=== PATIENT | male | born 1960 | race Caucasian/White ===

== ENCOUNTER 2023-08-01 21:44 | Emergency (ER) | payer OTHER ==
[2023-08-01] MEDS ORDERED: Sodium Chloride 0.9% 1000 ML 1,000 ML IV STA (22:40)
[2023-08-01 22:41] VITALS: TEMP 98.2
[2023-08-01] MEDS ORDERED: ROCEPHIN 1 Gm-D5w 50 ml Bag** 1 G/50 ML IVPB IV STA (22:41)
--- NOTE | 2023-08-01 22:52 | ERPHSYRPT ---
- History of Present Illness Time Seen by Provider: 08/01/23 22:31 Source: patient, family (sister) Exam Limitations: no limitations Physician History: Reportedly pt had abnormal labs today and was instructed to come to ER by his senior sharepoint architect. Pt denies chest pain, shortness of air, fever, vomiting, diarrhea; admits to chills for months. Pt states he has been diagnosed with bladder cancer in August 2022 and follows up with Dr. Mccoy with monthly infusions of o pdivo. Allergies/Adverse Reactions: No Known Drug Allergies Allergy (Unverified 08/01/23 22:26) Home Medications: Docusate Sodium 100 mg [Docusate Sodium 100 MG] 100 mg PO DAILY 08/01/23 [History] Prochlorperazine Maleate 5 mg* [Compazine 5 MG] 5 mg PO DAILY PRN PRN 08/01/23 [History] - Review of Systems Constitutional: Chills, No Fever Respiratory: No Dyspnea Cardiac: No Chest Pain Abdominal/Gastrointestinal: No Abdominal Pain, No Vomiting, No Diarrhea Neurological: No Headache - Nursing Vital Signs Nursing Vital Signs: Initial Vital Signs Temperature 98.2 F 08/01/23 22:28 Pulse Rate 112 H 08/01/23 22:28 Respiratory Rate 18 08/01/23 22:28 Blood Pressure 110/69 08/01/23 22:28 O2 Sat by Pulse Oximetry 98 08/01/23 22:28 Pain Scale Pain Intensity 0 - Physical Exam General Appearance: alert Eye Exam: PERRL/EOMI Ears, Nose, Throat Exam: TMs normal, pharynx normal Neck Exam: normal inspection Respiratory Exam: lungs clear Cardiovascular Exam: normal heart sounds Gastrointestinal/Abdomen Exam: normal bowel sounds Neurologic Exam: alert, cooperative Skin Exam: warm, dry Ordered Tests: Active Orders 24 hr Category Date Time Status IV Insertion STAT Care 08/01/23 22:40 Active BLOOD CULTURE Stat Lab 08/01/23 23:14 Received CBC W DIFF Stat Lab 08/01/23 23:20 Completed CMP Stat Lab 08/01/23 23:20 Completed CULTURE,URINE Stat Lab 08/02/23 00:15 Received Lactic Acid Stat Lab 08/01/23 23:31 Completed UA W/RFX UR CULTURE Stat Lab 08/02/23 00:15 Completed VBG [VENOUS BLOOD GAS] Stat Lab 08/01/23 23:20 Completed Medication Summary Generic Name Dose Route Start Last Admin Trade Name Talya PRN Reason Stop Dose Admin Sodium Bicarbonate 100 meq/ 1,100 mls @ 999 mls/hr 08/02/23 00:30 08/02/23 01:32 Dextrose IV 09/01/23 00:29 999 mls/hr .Q1H7M SELINA 999 mls/hr Administration Discontinued Medications Generic Name Dose Route Start Last Admin Trade Name Talya PRN Reason Stop Dose Admin Sodium Chloride 1,000 mls @ 999 mls/hr 08/01/23 22:40 08/02/23 00:22 Sodium Chloride 0.9% 1000 Ml IV 08/01/23 23:40 Infused .Q1H1M STA Infusion Ceftriaxone Sodium/Dextrose 1 g in 50 mls @ 100 mls/hr 08/01/23 22:41 08/02/23 00:19 Rocephin 1 Gm-D5w 50 Ml Bag IV 08/01/23 23:10 Infused STAT STA Infusion Sodium Chloride Confirm 08/01/23 23:17 Sodium Chloride 0.9% 1000 Ml Administered 08/01/23 23:18 Dose 1,000 mls @ ud .ROUTE .STK-MED ONE Ceftriaxone Sodium/Dextrose Confirm 08/01/23 23:17 Rocephin 1 Gm-D5w 50 Ml Bag Administered 08/01/23 23:18 Dose 1 g in 50 mls @ ud IV .STK-MED ONE Dextrose Confirm 08/02/23 00:28 Dextrose 5%/Water Iv Soln. 1000 Ml Administered 08/02/23 00:29 Dose 1,000 mls @ ud IV .STK-MED ONE Sodium Bicarbonate Confirm 08/02/23 00:27 Sodium Bicarbonate 1 Meq/Ml 50ml Vial Administered 08/02/23 00:28 Dose 100 meq .ROUTE .STK-MED ONE Sodium Bicarbonate Confirm 08/02/23 01:08 Sodium Bicarbonate 1 Meq/Ml 50ml Vial Administered 08/02/23 01:09 Dose 50 meq .ROUTE .STK-MED ONE Lab/Rad Data: Laboratory Result Diagrams 08/01/23 23:20 08/01/23 23:20 Laboratory Results 08/02/23 08/01/23 08/01/23 Range/Units 00:15 23:31 23:20 WBC (4.0-10.5) x10^3/uL RBC (4.1-5.6) x10^6/uL Hgb (12.5-18.0) g/dL Hct (42-50) % MCV (78-100) fL MCH (26-32) pg MCHC (32-36) g/dL RDW (11.5-14.0) % Plt Count (150-450) x10^3/uL MPV (7.5-11.0) fL Gran % (36.0-66.0) % Immature Gran % (Auto) (0.00-0.4) % Nucleat RBC Rel Count (0.00-0.1) % Eos # (Auto) (0-0.5) x10^3/uL Immature Gran # (Auto) (0.00-0.03) x10^3u/L Absolute Lymphs (auto) (1.0-4.6) x10^3/uL Absolute Monos (auto) (0.0-1.3) x10^3/uL Absolute Nucleated RBC (0.00-0.01) x10^3u/L Lymphocytes % (24.0-44.0) % Monocytes % (0.0-12.0) % Eosinophils % (0.00-5.0) % Basophils % (0.0-0.4) % Absolute Granulocytes (1.4-6.9) x10^3/uL Basophils # (0-0.4) x10^3/uL pO2/FiO2 Ratio % VBG pH (7.32-7.42) VBG pCO2 at Pat Temp (42-55) mm/Hg VBG pO2 at Pat Temp (25-40) mm/Hg VBG HCO3 (22-28) meq/L VBG O2 Sat ([place]) (95-100) VBG Base Excess (-2.0-2.0) VBG Hemoglobin VBG Carboxyhemoglobin (0.0-6.9) % T HGB POC Potassium (3.5-5.1) Sodium 132 L (137-145) mmol/L Potassium 4.6 (3.5-5.1) mmol/L Chloride 110 H (98-107) mmol/L Carbon Dioxide 8 L* (22-30) mmol/L Anion Gap 18.3 H (5-15) MEQ/L BUN 92 H (9-20) mg/dL Creatinine 4.26 H (0.66-1.25) mg/dL Estimated GFR 15.0 ML/MIN Glucose 110 H (74-106) mg/dL Lactic Acid 0.6 (0.4-2.0) Calcium 9.5 (8.4-10.2) mg/dL Total Bilirubin 0.20 (0.2-1.3) mg/dL AST 18 (17-59) U/L ALT 21 (0-50) U/L Alkaline Phosphatase 160 H (38-126) U/L Serum Total Protein 8.4 H (6.3-8.2) g/dL Albumin 4.2 (3.5-5.0) g/dL Urine Color Yellow (Yellow) Urine Appearance Clear (Clear) Urine pH 6.5 (4.6-8.0) Ur Specific [place] 1.010 (1.005-1.030) Urine Protein 100 A (Negative) Urine Glucose (UA) Negative (Negative) mg/dL Urine Ketones Negative (Negative) Urine Blood Small A (Negative) Urine Nitrite Positive A (Negative) Urine Bilirubin Negative (Negative) Urine Urobilinogen 0.2 (0.2) mg/dL Ur Leukocyte Esterase Large A (Negative) U Hyaline Cast (Auto) NONE SEEN (0-2) /LPF Urine Microscopic RBC 3-5 (0-5) /HPF Urine Microscopic WBC >100 A (0-5) /HPF Ur Epithelial Cells Rare (None Seen) /HPF Urine Bacteria Many A (None Seen) /HPF Urine Culture Reflexed YES (NO) 08/01/23 08/01/23 Range/Units 23:20 23:20 WBC 10.7 H (4.0-10.5) x10^3/uL RBC 3.97 L (4.1-5.6) x10^6/uL Hgb 10.7 L (12.5-18.0) g/dL Hct 33.3 L (42-50) % MCV 83.9 (78-100) fL MCH 27.0 (26-32) pg MCHC 32.1 (32-36) g/dL RDW 17.0 H (11.5-14.0) % Plt Count 311 (150-450) x10^3/uL MPV 9.5 (7.5-11.0) fL Gran % 82.2 H (36.0-66.0) % Immature Gran % (Auto) 1.8 H (0.00-0.4) % Nucleat RBC Rel Count 0.0 (0.00-0.1) % Eos # (Auto) 0.09 (0-0.5) x10^3/uL Immature Gran # (Auto) 0.19 H (0.00-0.03) x10^3u/L Absolute Lymphs (auto) 0.87 L (1.0-4.6) x10^3/uL Absolute Monos (auto) 0.73 (0.0-1.3) x10^3/uL Absolute Nucleated RBC 0.00 (0.00-0.01) x10^3u/L Lymphocytes % 8.1 L (24.0-44.0) % Monocytes % 6.8 (0.0-12.0) % Eosinophils % 0.8 (0.00-5.0) % Basophils % 0.3 (0.0-0.4) % Absolute Granulocytes 8.82 H (1.4-6.9) x10^3/uL Basophils # 0.03 (0-0.4) x10^3/uL pO2/FiO2 Ratio 21.0 % VBG pH 7.17 L* (7.32-7.42) VBG pCO2 at Pat Temp 32 L (42-55) mm/Hg VBG pO2 at Pat Temp 59 H (25-40) mm/Hg VBG HCO3 11.7 L* (22-28) meq/L VBG O2 Sat ([place]) 91.0 L (95-100) VBG Base Excess -15.6 L (-2.0-2.0) VBG Hemoglobin 11.1 VBG Carboxyhemoglobin 7.5 H* (0.0-6.9) % T HGB POC Potassium 4.6 (3.5-5.1) Sodium (137-145) mmol/L Potassium (3.5-5.1) mmol/L Chloride (98-107) mmol/L Carbon Dioxide (22-30) mmol/L Anion Gap (5-15) MEQ/L BUN (9-20) mg/dL Creatinine (0.66-1.25) mg/dL Estimated GFR ML/MIN Glucose (74-106) mg/dL Lactic Acid (0.4-2.0) Calcium (8.4-10.2) mg/dL Total Bilirubin (0.2-1.3) mg/dL AST (17-59) U/L ALT (0-50) U/L Alkaline Phosphatase (38-126) U/L Serum Total Protein (6.3-8.2) g/dL Albumin (3.5-5.0) g/dL Urine Color (Yellow) Urine Appearance (Clear) Urine pH (4.6-8.0) Ur Specific [place] (1.005-1.030) Urine Protein (Negative) Urine Glucose (UA) (Negative) mg/dL Urine Ketones (Negative) Urine Blood (Negative) Urine Nitrite (Negative) Urine Bilirubin (Negative) Urine Urobilinogen (0.2) mg/dL Ur Leukocyte Esterase (Negative) U Hyaline Cast (Auto) (0-2) /LPF Urine Microscopic RBC (0-5) /HPF Urine Microscopic WBC (0-5) /HPF Ur Epithelial Cells (None Seen) /HPF Urine Bacteria (None Seen) /HPF Urine Culture Reflexed (NO) - Progress Progress: improved Discussed with : Other (Spoke with & discussed pt with Dr. Omar de luna(Covering senior sharepoint architect for Dr. Maya(whom pt saw today in his office)) who stated pt is to receive 100 mEQ of sodium bicarbinate in 1 L D5W over 1 hour, discharge pt, Rx (2) 650 meq sodium bicarbinate tablets tid for 1 week; Rx keflex for his UTI.) Counseled pt/family regarding: lab results, diagnosis Medical Desision Making - Independent Historian Additional History obtained from: Family (sister) - Diagnostic Testing Diagnostic test were ordered, analyzed, and reviewed by me: Yes Radiological Interpretation: Interpreted by me - Departure Departure Disposition: Home Clinical Impression: UTI (urinary tract infection), Renal failure, Hx of bladder cancer Condition: Stable Critical Care Time: No Referrals: MYESHA MAYA [Primary Care Provider] - Follow up/PCP as directed Instructions: Urinary Tract Infection, Adult (DC) Additional Instructions: Follow up with Dr. Maya today. Prescriptions: Cephalexin Mh 500 mg [Keflex 500 mg] 500 mg PO TID #30 cap
[2023-08-01] MEDS ORDERED: Sodium Chloride 0.9% 1000 ML 1,000 ML ONE (23:17)
[2023-08-01] MEDS ORDERED: ROCEPHIN 1 Gm-D5w 50 ml Bag** 1 G/50 ML IVPB IV ONE (23:17)
[2023-08-01 23:27] LABS: VBG BASE EXCESS -15.6 (-2.0-2.0); VBG HCO3- 11.7 meq/L (22-28); VBG HEMOGLOBIN 11.1; VBG POTASSIUM 4.6 (3.5-5.1)
[2023-08-01 23:28] LABS: VBG CARBOXYHEMOGLOBIN 7.5 % T HGB (0.0-6.9); VBG pH 7.17 (7.32-7.42)
[2023-08-01 23:30] LABS: Absolute Neutrophil Ct (ANC) 8.82 x10^3/uL (1.4-6.9); BASOPHIL % 0.3 % (0.0-0.4); Basophil (Absolute #) 0.03 x10^3/uL (0-0.4); Eosinophil % 0.8 % (0.00-5.0); Eosinophil (Absolute #) 0.09 x10^3/uL (0-0.5); Hematocrit 33.3 % (42-50); Hemoglobin 10.7 g/dL (12.5-18.0); IMMATURE GRAN # 0.19 x10^3u/L (0.00-0.03); IMMATURE GRAN % 1.8 % (0.00-0.4); Lymphocyte (Absolute #) 0.87 x10^3/uL (1.0-4.6); Lymphocytes % 8.1 % (24.0-44.0); Mean Cell Volume 83.9 fL (78-100); Mean Corpuscular Hgb Concent. 32.1 g/dL (32-36); Mean Platelet Volume 9.5 fL (7.5-11.0); Monocyte (Absolute #) 0.73 x10^3/uL (0.0-1.3); Monocytes % 6.8 % (0.0-12.0); Neutrophil % 82.2 % (36.0-66.0); Platelet Count 311 x10^3/uL (150-450); Red Blood Count 3.97 x10^6/uL (4.1-5.6); White Blood Count 10.7 x10^3/uL (4.0-10.5)
[2023-08-01 23:45] LABS: ALBUMIN 4.2 g/dL (3.5-5.0); ANION GAP 18.3 MEQ/L (5-15); BILIRUBIN,TOTAL 0.2 mg/dL (0.2-1.3); Calcium 9.5 mg/dL (8.4-10.2); Creatinine 1 4.26 mg/dL (0.66-1.25); Potassium 4.6 mmol/L (3.5-5.1); Total Protein 8.4 g/dL (6.3-8.2)
[2023-08-02 00:17] VITALS: O2SAT 100
[2023-08-02] MEDS ORDERED: Sodium Bicarbonate 50 MEQ/50 ML VIAL ONE ×2 (00:27→01:08)
[2023-08-02] MEDS ORDERED: Dextrose 5%/Water IV Soln. 1000 ML 1,000 ML IV ONE (00:28)
[2023-08-02 00:36] LABS: ADD URINE CULTURE? YES (NO); Appearance Clear (Clear); Bacteria Many /HPF (None Seen); Bilirubin Negative (Negative); Blood Small (Negative); Epithelial Cells Rare /HPF (None Seen); Glucose, Urine Negative (Negative); Hyaline Casts NONE SEEN /LPF (0-2); Ketones Negative (Negative); Leukocyte Esterase Large (Negative); Nitrite Positive (Negative); Ph 6.5 (4.6-8.0); Protein,Urine Dip 100 (Negative); Urobilinogen 0.2 mg/dL (0.2); WBC >100 /HPF (0-5)
[2023-08-02 01:04] VITALS: RESP 20
[2023-08-02] MEDS: Sodium Bicarbonate 50 MEQ/50 ML VIAL*** 100 MEQ in Dextrose 5%/Water IV Soln. 1000 ML 1... IV SCH ×2 (01:25→01:32)
[2023-08-02 02:49] VITALS: BP 110/73; PULSE 92
== END 2023-08-02 02:37 | disposition home or self-care (01) ==
LOC: ED 21:44
DX: N39.0 Urinary tract infection, site not specified (principal); N19 Unspecified kidney failure; Z85.51 Personal history of malignant neoplasm of bladder; Z79.899 Other long term (current) drug therapy
CPT/HCPCS: 36000; 36415; 80053; 81001; 82805; 83605; 85025; 87040; 87077; 87086; 87186; 96360; 96361; 96365; 99285; J0696; J1642